=== PATIENT | male | born 1990 | race African-American/Black ===

== ENCOUNTER 2018-08-25 02:30 | Emergency (ER) | payer OTHER ==
[2018-08-25] MEDS ORDERED: Nicotine Inhaler* 10 MG AMP INH PRN (03:14)
--- NOTE | 2018-08-25 03:15 | ED ---
Psychiatric Complaint - HPI Summary HPI Summary: This patient is a 28 year old M presenting to ED with a chief complaint of hallucinations since earlier today and has progressively worsened. He has not slept since 0600 on 08/22/18. PMHx of insomnia and these hallucinations usually happens when he cant sleep. He reports that people turn invisible. People are outside his window when they are not. He was seeing his entire family tonight and thought they came down to surprise him. He thought there are ghosts in his house. He also thought his mom had called him and thought that when walking down the street, there had been giant animals built out of snow. The patient rates the pain 0/10 in severity. Symptoms aggravated by insomnia. Symptoms alleviated by nothing. Patient reports auditory hallucinations but not olfactory or tactile hallucinations. The patient reports that sometimes he believes the things he is seeing and hearing are real, but he realized todays events were just hallucinations. The patient also admits to having alcohol (wine , about 3 bottles a week) and usually the hallucinations start when he stops alcohol. The police got a call from residents to his location. The residents didnt recognize him and were cautious of him because he had been talking to himself. He was not aggressive towards anyone. 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 - History Of Current Complaint Chief Complaint: EDMentalHealth Hx Obtained From: Patient Onset/Duration: Sudden Onset, Lasting Days, Still Present Timing: Days Severity Currently: None Aggravating Factor(s): Alcohol Use, Other - insomnia Alleviating Factor(s): Nothing Associated Signs And Symptoms: Positive: Hallucinating Related History: Positive For: Prior Psychiatric Issues - Allergies/Home Medications Allergies/Adverse Reactions: Allergies Allergy/AdvReac Type Severity Reaction Status Date / Time No Known Allergies Allergy Verified 08/25/18 02:36 Home Medications: Home Medications Metoprolol Tartrate 25 mg PO DAILY 08/25/18 [History Confirmed 08/25/18] PMH/Surg Hx/FS Hx/Imm Hx Endocrine/Hematology History: Denies: Hx Diabetes Neurological History: Reports: Other Neuro Impairments/Disorders - insomnia Infectious Disease History: No Infectious Disease History: Denies: Traveled Outside the [place] in Last 30 Days - Family History Known Family History: Positive: Cardiac Disease, Hypertension, Diabetes - Social History Alcohol Use: Weekly Alcohol Amount: 2 times weekly Substance Use Type: Reports: None Smoking Status (MU): Never Smoked Tobacco Review of Systems Positive: Other - prior alcohol intoxication Neurological: Other - insomnia Positive: Other - Patient reports visual and auditory hallucinations but not olfactory or tactile hallucinations. He was not aggressive towards anyone. All Other Systems Reviewed And Are Negative: Yes Physical Exam - Summary Physical Exam Summary: Appearance: Well-appearing, Well-nourished, lying in bed comfortable Skin: Warm, dry, no obvious rash Eyes: sclera anicteric, no conjunctival pallor ENT: mucous membranes moist Neck: deferred Respiratory: No signs of respiratory distress Cardiovascular: Appears well perfused, pulses are nml Abdomen: deferred Musculoskeletal: Moving all 4 extremities without obvious discomfort Neurological: Awake and alert, mentation is normal, speech is fluent and appropriate Psychiatric: affect is normal, does not appear anxious or depressed Triage Information Reviewed: Yes Vital Signs On Initial Exam: Initial Vitals Temp Pulse Resp BP Pulse Ox 97.8 F 133 18 126/88 94 08/25/18 02:33 08/25/18 02:33 08/25/18 02:33 08/25/18 02:33 08/25/18 02:33 Vital Signs Reviewed: Yes Diagnostics - Vital Signs Vital Signs Temp Pulse Resp BP Pulse Ox 08/25/18 02:33 97.8 F 133 18 126/88 94 - Laboratory Result Diagrams: 08/25/18 03:24 08/25/18 03:24 Lab Statement: Any lab studies that have been ordered have been reviewed, and results considered in the medical decision making process. Re-Evaluation - Re-Evaluation First Eval Re-Evaluation Time: 06:03 Comment: The patient wants to be discharged. Course/Dx - Course Assessment/Plan: This patient is a 28 year old M presenting to ED with a chief complaint of hallucinations since earlier today and has progressively worsened. This patient was medically cleared for [facility] at 0426. This patient wants to be discharged. dx hallucinations. - Differential Dx/Clinical Impression Differential Diagnosis/HQI/PQRI: Positive: Other - hallucinations Provider Diagnosis: Hallucinations Discharge - Sign-Out/Discharge Documenting (check all that apply): Patient Departure - discharge Patient Received Moderate/Deep Sedation with Procedure: No - Discharge Plan Condition: Good Disposition: HOME Prescriptions: LORazepam [Ativan] 1 mg PO BID PRN #20 tablet MDD 2 tabs PRN Reason: Anxiety Patient Education Materials: Hallucinations (ED) Referrals: [facility] [Outside] Additional Instructions: I have prescribed medication for your anxiety temporarily, but it is important that you get a doctor to treat your anxiety and depression, or you are likely to have more problems like you overnight tonight. - Billing Disposition and Condition Condition: GOOD Disposition: Home - Attestation Statements Document Initiated by Kelseye: Yes Documenting Scribe: Quincy Ness Provider For Whom Corbin is Documenting (Include Credential): Kvng Croft MD Scribe Attestation: IQuincy, scribed for Kvng Croft MD on 08/27/18 at 0221. Scribe Documentation Reviewed: Yes Provider Attestation: The documentation as recorded by the Quincy adams accurately reflects the service I personally performed and the decisions made by me, Kvng Croft MD Status of Scribe Document: Viewed
[2018-08-25 03:36] LABS: ABS Basophils 0 10^3/ul (0-0.2); ABS Eosinophils 0 10^3/ul (0-0.6); ABS Lymphocytes 1.3 10^3/ul (1.0-4.8); ABS Monocytes 0.5 10^3/ul (0-0.8); ABS Neutrophils 6.3 10^3/ul (1.5-7.7); ABS Nucleated RBC 0 10^3/ul; Eosinophil % 0.1 %; Hematocrit 42 % (42-52); Hemoglobin 14.2 g/dl (14.0-18.0); Mean Corpuscular HGB Conc 34 g/dl (31-36); Mean Corpuscular Hemoglobin 32 pg (27-31); Mean Corpuscular Volume 95 fL (80-94); Mean Platelet Volume 8.7 fL (7.4-10.4); Nucleated Red Blood Cells % 0; Platelet Count 134 10^3/ul (150-450); Red Blood Count 4.38 10^6/ul (4.00-5.40); Red Cell Distribution Width 13 % (10.5-15); White Blood Count 8.1 10^3/ul (3.5-10.8)
[2018-08-25 03:56] LABS: Albumin 4.8 g/dL (3.2-5.2); Albumin/Globulin Ratio 1.1 (1-3); BUN/Creatinine Ratio 8.5 (8-20); Calcium 9.8 mg/dL (8.6-10.3); EGFR Non-African American 94.2 (>60); Globulin 4.3 g/dL (2-4); Potassium 3.1 mmol/L (3.5-5.0); Total Bilirubin 0.9 mg/dL (0.2-1.0); Total Protein 9.1 g/dL (6.4-8.9)
[2018-08-25 04:27] LABS: TSH (Thyroid Stimulating Horm) 1.83 mcIU/mL (0.34-5.60)
[2018-08-25] MEDS ORDERED: LORazepam TAB(*) 1 MG PO ONE (06:05)
[2018-08-25 06:15] VITALS: BP 116/70
== END 2018-08-25 06:15 | disposition home or self-care (01) ==
LOC: ED 02:30
DX: R44.3 Hallucinations, unspecified (principal)
CPT/HCPCS: 36415; 80053; 80320; 84443; 85025; 99282; A9270-GY; G0480